=== PATIENT | male | born 1930 | race Caucasian/White ===

== ENCOUNTER 2018-02-02 11:40 | Inpatient (IN) | payer MEDICARE, OTHER ==
[~2018-02-02] VITALS: Ht 157.5 cm; Wt 78.5 kg
[2018-02-02 12:03] LABS: BASOPHILS % (AUTO) 0.4 % (0.0-2.0); EOSINOPHILS # (AUTO) 0.1 K/uL (0.0-0.7); HEMATOCRIT 38.2 % (36.7-47.1); HEMOGLOBIN 12.7 g/dL (12.5-16.3); LYMPHOCYTES # (AUTO) 1.9 K/uL (20.0-40.0); LYMPHOCYTES % (AUTO) 27.3 % (20.5-51.5); MEAN CORPUSCULAR HGB CONC 33 g/dL (32.5-36.3); MEAN CORPUSCULAR VOLUME 96.1 fL (73.0-96.2); MONOCYTES # (AUTO) 0.7 K/uL (2.0-10.0); NEUTROPHILS # (AUTO) 4.4 K/uL (1.8-8.9); NEUTROPHILS % (AUTO) 61.3 % (38.5-71.5); PLATELET COUNT (AUTO) 138 K/uL (152-348); RED BLOOD CELL COUNT(AUTO) 3.97 MIL/uL (4.06-5.63); WHITE BLOOD COUNT (AUTO) 7.1 K/uL (3.6-10.2)
--- NOTE | 2018-02-02 12:03 | NUR ---
Dr Bailey at the bedside for MSE.
[2018-02-02 12:13] LABS: CARBON DIOXIDE 22 mmol/L (21-32); CHLORIDE 107 mmol/L (98-107); CREATININE 1.2 mg/dL (0.6-1.3); GLUCOSE 138 mg/dL (74-106); POTASSIUM 4.3 mmol/L (3.5-5.1); UREA NITROGEN, BLOOD 24 mg/dL (7-18)
[2018-02-02] MEDS ORDERED: FOLI1TAB16 PO (12:18)
[2018-02-02] MEDS ORDERED: HYDR-3976 PO (12:18)
[2018-02-02] MEDS ORDERED: FAMO-132 PO (12:18)
[2018-02-02] MEDS ORDERED: GABA600T2 PO (12:18)
[2018-02-02] MEDS ORDERED: TAMS-3 PO (12:18)
[2018-02-02] MEDS ORDERED: FEXO-38 PO (12:18)
[2018-02-02] MEDS ORDERED: METH2.5T PO (12:18)
[2018-02-02] MEDS ORDERED: TRAZ-182 PO (12:18)
[2018-02-02] MEDS ORDERED: ACET325T53 PO (12:18)
[2018-02-02] MEDS ORDERED: PRED-429 PO (12:18)
[2018-02-02] MEDS ORDERED: METF500T7 PO (12:18)
[2018-02-02] MEDS ORDERED: MELO-107 PO (12:18)
[2018-02-02] MEDS ORDERED: OMEP20TA5 PO (12:18)
[2018-02-02] MEDS ORDERED: ONDA4TAB10 PO (12:18)
[2018-02-02] MEDS ORDERED: MONT10TA22 PO (12:18)
[2018-02-02] MEDS ORDERED: NYST15OI TP (12:18)
[2018-02-02] MEDS ORDERED: ZOLP5TAB8 PO (12:18)
[2018-02-02] MEDS ORDERED: POLY255P2 PO (12:18)
[2018-02-02] MEDS ORDERED: LOSA50TA21 PO (12:18)
[2018-02-02] MEDS ORDERED: GUAI100S9 PO (12:18)
[2018-02-02] MEDS ORDERED: ALBU18HF2 IH (12:18)
[2018-02-02 12:20] LABS: ALANINE AMINOTRANSFERASE 42 U/L (16-63); ALKALINE PHOSPHATASE 105 U/L (50-136); ASPARTATE AMINOTRANSFERASE 31 U/L (15-37); BILIRUBIN,DIRECT 0.3 mg/dL (0.0-0.2); BILIRUBIN,TOTAL 0.7 mg/dL (0.2-1.0); TOTAL PROTEIN, SERUM 6.7 g/dL (6.4-8.2)
[2018-02-02 12:22] LABS: ACETAMINOPHEN < 2.0 ug/mL (10-30)
[2018-02-02 12:23] LABS: ETHANOL < 3 MG/DL (0-0)
--- NOTE | 2018-02-02 12:23 | NUR ---
Pt able to use urinal, urine collected and sent to LAB.
--- NOTE | 2018-02-02 12:30 | NUR ---
Pt is medically cleared by Dr Bailey. [facility] brand development manager Gerardo Duarte called, ETA 1 hour.
--- NOTE | 2018-02-02 12:45 | NUR ---
Lunch provided, pt ate w/o assisstance.
[2018-02-02 12:48] LABS: *BILIRUBIN,URIN NEGATIVE (NEGATIVE); *BLOOD, URINE NEGATIVE (NEGATIVE); *CLARITY,URINE CLEAR (CLEAR); *COLOR,URINE YELLOW (YELLOW); *KETONES,URINE TRACE (NEGATIVE); *PROTEIN,URINE TRACE (NEGATIVE); *UROBILINOGEN,URINE 0.2 E.U./dl (NORMAL); LEUKOCYTE ESTERASE ,URINE NEGATIVE (NEGATIVE); NITRITE, URINE NEGATIVE (NEGATIVE); PH,URINE 5.5 (5.0-8.0); UGLUCOSE NEGATIVE (NEGATIVE)
[2018-02-02 12:52] LABS: BACTERIA,URINE FEW /HPF (NONE SEEN); RBC,URINE 0-3 /HPF (0-3); SQUAMOUS EPITHELIAL CELL,UR FEW /HPF (NONE SEEN); WBC,URINE 0-3 /HPF (0-3)
[2018-02-02 13:17] LABS: *AMPHETAMINE, URINE NEGATIVE (NEGATIVE); *BARBITURATE, URINE NEGATIVE (NEGATIVE); *CANNABINOID, URINE NEGATIVE (NEGATIVE); *COCCAINE, URINE NEGATIVE (NEGATIVE); *OPIATE, URINE POSITIVE (NEGATIVE); *PHENCYCLIDINE SCREEN,URINE NEGATIVE (NEGATIVE)
--- NOTE | 2018-02-02 14:25 | NUR ---
Gerardo Duarte from [facility] at the bedside for Psych Eval.
[2018-02-02] MEDS ORDERED: GUAIFENESIN SUGAR FREE 100 MG/5 ML UDC PO PRN (16:15)
[2018-02-02] MEDS ORDERED: FAMOTIDINE 20 MG TABLET PO PRN (16:15)
[2018-02-02] MEDS ORDERED: ALBUTEROL SULFATE 2.5 MG/3 ML NEBU NEB PRN (16:30)
[2018-02-02] MEDS ORDERED: HYDROCODONE/APAP 7.5-325MG TABLET PO SCH (17:00)
[2018-02-02] MEDS ORDERED: ACETAMINOPHEN 325 MG TABLET PO SCH (17:00)
[2018-02-02] MEDS: NYSTATIN OINTMENT 15 GM TUBE TP SCH (17:00)
[2018-02-02] MEDS ORDERED: ALBUTEROL SULFATE 8 GM HFA.AER.AD IH SCH (17:00)
[2018-02-02] MEDS ORDERED: ACETAMINOPHEN 325 MG TABLET PO PRN (17:00)
[2018-02-02] MEDS ORDERED: Z GUARD REMEDY PASTE 57 GM TUBE TOP PRN (19:30)
--- NOTE | 2018-02-02 19:30 | NUR ---
RECEIVED PATIENT IN HIS ROOM. HE IS NOTED A/O X2, (PERSON AND PLACE) ABLE TO MAKE HIS NEEDS KNOW, AND ABLE TO AMBULATE WITH ONE PERSON ASSISTANCE. HE WAS NOTED IRRITABLE, HE IS NOTED COMPLAINING OF THE AIR CONDITION BLOWING DIRECTLY INTO HIS FACE. PATIENT WAS PLACED IN A [facility]SEE CHAIR AND WAS OFFERED A DIFFERENT ROOM. POOR INSIGHT NOTED INTO THE REASON FOR HIS ADMISSION TO [facility]. PATIENT DENIES SI. DENIES HEARING VOICES. ABLE TO CONTRACT FOR SAFETY. ABLE TO COMPLY WITH MEDICATION REGIMENT, SAFETY EMPHASIS. WILL CONTINUE TO MONITOR CLOSELY.
[2018-02-02] MEDS: TRAZODONE 50 MG TABLET PO SCH (20:08)
[2018-02-02 20:47] VITALS: BP 135/66
[2018-02-02] MEDS ORDERED: TRAZODONE 50 MG TABLET PO SCH (21:00)
[2018-02-02] MEDS ORDERED: ZOLPIDEM 5 MG TABLET PO SCH (21:00)
[2018-02-02] MEDS: MONTELUKAST SODIUM 10 MG TABLET PO SCH (21:25)
[2018-02-02] MEDS: TAMSULOSIN HCL 0.4 MG CAP.SR.24H PO SCH (21:25)
[2018-02-02] MEDS: Z GUARD REMEDY PASTE 57 GM TUBE TOP SCH (21:26)
[2018-02-02] MEDS: TEMAZEPAM 7.5 MG CAPSULE PO PRN (22:03)
--- NOTE | 2018-02-02 22:05 | NUR ---
PATIENT NOTED AWAKE, UNABLE TO FALL ASLEEP. TEMAZEPAM 7.5 MG PO PRN WAS GIVEN FOR INSOMNIA. WILL CONTINUE TO MONITOR CLOSELY.
--- NOTE | 2018-02-03 00:10 | NUR ---
PATIENT NOTED SLEEPING COMFORTABLE IN HIS BED. WILL CONTINUE TO MONITOR CLOSELY.
[2018-02-03 07:34] LABS: THYROID STIMULATING HORMONE 1.926 mIU/mL (0.358-3.740)
[2018-02-03 07:50] LABS: MAGNESIUM 1.8 mg/dL (1.8-2.4); POTASSIUM 4.2 mmol/L (3.5-5.1)
[2018-02-03 08:00] VITALS: BP 141/60
--- NOTE | 2018-02-03 08:00 | NUR ---
Pt.eating breakfast ,was assisted,good appetite.good interaction.
[2018-02-03] MEDS: FEXOFENADINE HCL 180 MG TABLET PO SCH (08:18)
[2018-02-03] MEDS: FOLIC ACID 1 MG TABLET PO SCH (08:18)
[2018-02-03] MEDS: NYSTATIN OINTMENT 15 GM TUBE TP SCH ×3 (08:19→17:13)
[2018-02-03] MEDS: MIRALAX 17 GM POWD.PACK PO SCH (08:19)
[2018-02-03] MEDS: LOSARTAN POTASSIUM 50 MG TABLET PO SCH (08:19)
[2018-02-03] MEDS: Z GUARD REMEDY PASTE 57 GM TUBE TOP SCH ×2 (08:19→20:40)
[2018-02-03] MEDS: HYDROCODONE/APAP 5-325MG TABLET PO PRN (10:14)
[2018-02-03] MEDS ORDERED: METHOTREXATE SODIUM 2.5 MG TABLET PO SCH (12:30)
[2018-02-03] MEDS ORDERED: Medication Not On Formulary EA (Meloxicam 15 MG) PO PRN (12:30)
--- NOTE | 2018-02-03 12:30 | NUR ---
Pt.in activities room,became restless with episodes of agitation, pushing staff.
[2018-02-03] MEDS: SERTRALINE HCL 50 MG TABLET PO SCH (12:32)
[2018-02-03] MEDS ORDERED: MELOXICAM 7.5 MG TABLET PO PRN (13:00)
--- NOTE | 2018-02-03 14:03 | NUR ---
SPOKE WITH PT'S SON BRIGITTE KAPADIA, WHO SAID THAT HE CAN BRING PATIENT'S METHOTRAXATE FROM THE FACILITY BEFORE IT IS DUE NEXT WEDNESDAY.
--- NOTE | 2018-02-03 14:32 | NUR ---
pt.sleeping,no s/s of distress.
[2018-02-03 16:00] VITALS: BP 110/46
[2018-02-03] MEDS: DIVALPROEX 125 MG TABLET.DR PO SCH ×2 (17:49→20:39)
--- NOTE | 2018-02-03 19:17 | NUR ---
sbar report given ,no changes in pt.condition,no s/s of distress.
[2018-02-03] MEDS: ONDANSETRON HCL 4 MG TABLET PO PRN (20:29)
[2018-02-03 20:30] VITALS: BP_SYST 114; BP_SYST 126; BP_DIAS 61; BP_DIAS 67
--- NOTE | 2018-02-03 20:30 | NUR ---
RECEIVED PATIENT FROM [facility]. PATIENT IS ALERT TO SELF. PATIENT IS CONFUSED AND DISORIENTED BUT APPROPRIATE WHEN APPROACHED AND COOPERATIVE WITH STAFF AND CARE. PATIENT IS C/O NAUSEA. GIVEN ZOFRAN 4MG PO ORDERED PRN. VS WNL. PATIENT DENIES PAIN. NO S/S OF PAIN OR DISCOMFORT. NO RESP. DISTRESS NOTED. SITTER AT BEDSIDE. PROVIDED SAFE AND THERAPEUTIC ENVIRONMENT. BED ALARM ON. ALL NEEDS ATTENDED. WILL CONTINUE TO MONITOR AND ASSESS.
[2018-02-03] MEDS: TAMSULOSIN HCL 0.4 MG CAP.SR.24H PO SCH (20:39)
[2018-02-03] MEDS: GABAPENTIN 300 MG CAPSULE PO SCH (20:39)
[2018-02-03] MEDS: TRAZODONE 50 MG TABLET PO SCH (20:40)
[2018-02-03] MEDS: MONTELUKAST SODIUM 10 MG TABLET PO SCH (20:40)
[2018-02-03] MEDS ORDERED: Medication Not On Formulary EA (Gabapentin 600 MG) PO SCH (21:00)
--- NOTE | 2018-02-03 22:00 | NUR ---
ZOFRAN EFFECTIVE. NO C/O NAUSEA. SITTER AT BEDSIDE.
[2018-02-03] MEDS: TEMAZEPAM 7.5 MG CAPSULE PO PRN (23:02)
--- NOTE | 2018-02-03 23:05 | NUR ---
PATIENT IS AWAKE IN BED, RESTLESS. GIVEN RESTORIL 7.5MG PO PRN FOR SLEEP. SITTER AT BEDSIDE.
--- NOTE | 2018-02-04 06:12 | NUR ---
PATIENT ASLEEP IN BED. SLEPT 6 HOURS AND 45 MINUTES. SITTER AT BEDSIDE.
[2018-02-04 08:00] VITALS: BP 120/63
[2018-02-04] MEDS ORDERED: PREDNISONE 5 MG PO SCH (09:00)
[2018-02-04] MEDS: predniSONE 5 MG TABLET PO SCH (09:12)
[2018-02-04] MEDS: DIVALPROEX 125 MG TABLET.DR PO SCH ×2 (09:12→20:05)
[2018-02-04] MEDS: FEXOFENADINE HCL 180 MG TABLET PO SCH (09:12)
[2018-02-04] MEDS: MIRALAX 17 GM POWD.PACK PO SCH (09:12)
[2018-02-04] MEDS: FOLIC ACID 1 MG TABLET PO SCH (09:12)
[2018-02-04] MEDS: LOSARTAN POTASSIUM 50 MG TABLET PO SCH (09:12)
[2018-02-04] MEDS: NYSTATIN OINTMENT 15 GM TUBE TP SCH ×3 (09:13→17:12)
[2018-02-04] MEDS: Z GUARD REMEDY PASTE 57 GM TUBE TOP SCH ×2 (09:13→20:09)
[2018-02-04] MEDS: HYDROCODONE/APAP 5-325MG TABLET PO PRN (09:27)
[2018-02-04] MEDS: ONDANSETRON HCL 4 MG TABLET PO PRN (09:27)
[2018-02-04 11:46] VITALS: BP 102/50
[2018-02-04] MEDS: SERTRALINE HCL 50 MG TABLET PO SCH (12:51)
--- NOTE | 2018-02-04 14:40 | NUR ---
Initial DC Plan: Patient currently resides at [facility] [[address] [place] [address]; ]. SW will follow up with MD, patient, and patient's son Nikita [[phone]] to discuss most appropriate discharge plans. SW will form a safe and proper discharge.
[2018-02-04 16:15] VITALS: BP 106/56
[2018-02-04 20:00] VITALS: BP 128/60
[2018-02-04] MEDS: TAMSULOSIN HCL 0.4 MG CAP.SR.24H PO SCH (20:04)
[2018-02-04] MEDS: GABAPENTIN 300 MG CAPSULE PO SCH (20:04)
[2018-02-04] MEDS: MONTELUKAST SODIUM 10 MG TABLET PO SCH (20:05)
[2018-02-04] MEDS: TRAZODONE 50 MG TABLET PO SCH (20:05)
--- NOTE | 2018-02-05 07:05 | NUR ---
Nurse Notes: Received patient awake, calm, lying on bed on a semi- love's position with 1:1 sitter at the bedside for safety. call light within reach. no SOB or distress. Denies any pain. No display of pain or discomforts. Will continue to closely monitor.
[2018-02-05 07:25] VITALS: BP 109/49
[2018-02-05] MEDS ORDERED: DEXTROSE 50% 50 ML DISP.SYRIN IV PRN (08:00)
[2018-02-05] MEDS: BLOOD SUGAR DIAGNOSTIC 1 EACH STRIP VI SCH ×4 (08:32→20:34)
[2018-02-05] MEDS: NYSTATIN OINTMENT 15 GM TUBE TP SCH ×3 (08:40→16:09)
[2018-02-05] MEDS: INSULIN REGULAR, HUMAN 300 UNIT/3 ML VIAL SQ PRN ×2 (08:42→12:04)
[2018-02-05] MEDS: DIVALPROEX 125 MG TABLET.DR PO SCH ×2 (08:43→20:19)
[2018-02-05] MEDS: Z GUARD REMEDY PASTE 57 GM TUBE TOP SCH ×2 (08:43→20:23)
[2018-02-05] MEDS: FOLIC ACID 1 MG TABLET PO SCH (08:43)
[2018-02-05] MEDS: MIRALAX 17 GM POWD.PACK PO SCH (08:43)
[2018-02-05] MEDS: predniSONE 5 MG TABLET PO SCH (08:43)
[2018-02-05] MEDS: FEXOFENADINE HCL 180 MG TABLET PO SCH (08:43)
[2018-02-05] MEDS: LOSARTAN POTASSIUM 50 MG TABLET PO SCH (08:44)
[2018-02-05] MEDS: SERTRALINE HCL 50 MG TABLET PO SCH (12:04)
[2018-02-05 12:50] VITALS: BP 116/60
[2018-02-05 16:37] VITALS: BP 137/66
--- NOTE | 2018-02-05 17:22 | NUR ---
Nurse Notes: patient remained calm throughout the shift with no episodes of combativeness towards the staff. patient was cooperative and allowed the staff to provide care. performed blood sugar checks as scheduled, administered scheduled medications and insulin as ordered. Able to ambulate to the bathroom using FWW with steady gait. On 1:1 sitter for safety. Safety precautions observed. hourly rounding done. will endorse accordingly to incoming shift for continuity of care. Will continue to monitor.
[2018-02-05 19:00] VITALS: BP 123/57
--- NOTE | 2018-02-05 20:00 | NUR ---
Patient had a phone conversation with family member. Able to comprehend conversation. Patient assisted to restroom with FWW and assistance from [employer]INT [employer] FE[employer]ER. Frequent visual checks all times. Bed alarm engaged and sitter present at all times. No complaints of pain at this time. Will continue to monitor.
[2018-02-05] MEDS: TRAZODONE 50 MG TABLET PO SCH (20:19)
[2018-02-05] MEDS: TAMSULOSIN HCL 0.4 MG CAP.SR.24H PO SCH (20:20)
[2018-02-05] MEDS: GABAPENTIN 300 MG CAPSULE PO SCH (20:22)
[2018-02-05] MEDS: MONTELUKAST SODIUM 10 MG TABLET PO SCH (20:22)
[2018-02-05] MEDS: ATORVASTATIN 10 MG TABLET PO SCH (20:22)
--- NOTE | 2018-02-05 21:20 | NUR ---
Patient refused insulin. Risks and benefits explained x 3
--- NOTE | 2018-02-06 01:00 | NUR ---
Pt in room asleep. No apparent distress at this time.
--- NOTE | 2018-02-06 04:38 | NUR ---
Patient resting in bed. Sitter at bedside. No agitation noted at this time. Patient in good spirts
[2018-02-06 05:02] VITALS: BP 141/60
[2018-02-06] MEDS: BLOOD SUGAR DIAGNOSTIC 1 EACH STRIP VI SCH ×4 (06:33→20:19)
--- NOTE | 2018-02-06 07:05 | NUR ---
Received report from shift lab technician nurse, patient in bed awake, no distress noted at this time, bed in low position, side rails up x2. Sitter at bedside.
[2018-02-06 08:00] VITALS: BP 112/55
[2018-02-06] MEDS: DIVALPROEX 125 MG TABLET.DR PO SCH ×2 (08:36→20:19)
[2018-02-06] MEDS: predniSONE 5 MG TABLET PO SCH (08:36)
[2018-02-06] MEDS: FOLIC ACID 1 MG TABLET PO SCH (08:36)
[2018-02-06] MEDS: FEXOFENADINE HCL 180 MG TABLET PO SCH (08:37)
[2018-02-06] MEDS: LOSARTAN POTASSIUM 50 MG TABLET PO SCH (08:37)
[2018-02-06] MEDS: NYSTATIN OINTMENT 15 GM TUBE TP SCH ×3 (08:38→17:29)
[2018-02-06] MEDS: Z GUARD REMEDY PASTE 57 GM TUBE TOP SCH ×2 (08:38→20:26)
[2018-02-06] MEDS: MIRALAX 17 GM POWD.PACK PO SCH (08:38)
[2018-02-06] MEDS: INSULIN REGULAR, HUMAN 300 UNIT/3 ML VIAL SQ PRN ×3 (08:44→17:07)
[2018-02-06] MEDS ORDERED: BISACODYL 5 MG TABLET.DR PO PRN (11:45)
[2018-02-06] MEDS: SERTRALINE HCL 50 MG TABLET PO SCH (12:34)
[2018-02-06 15:44] VITALS: BP 122/56
[2018-02-06] MEDS: ONDANSETRON HCL 4 MG TABLET PO PRN (17:02)
--- NOTE | 2018-02-06 17:44 | NUR ---
Patient has been cooperative with care, ambulated to restroom with assistance, all needs attended to. Currently patient in bed, no distress noted, bed in low position, side rails up x2. Sitter at bedside.
[2018-02-06 19:51] VITALS: BP 133/61
[2018-02-06] MEDS: INSULIN GLARGINE,HUM 300 UNITS/3 ML CARTRIDGE SQ SCH (20:18)
[2018-02-06] MEDS: ATORVASTATIN 10 MG TABLET PO SCH (20:19)
[2018-02-06] MEDS: GABAPENTIN 300 MG CAPSULE PO SCH (20:19)
[2018-02-06] MEDS: TRAZODONE 50 MG TABLET PO SCH (20:22)
[2018-02-06] MEDS: MONTELUKAST SODIUM 10 MG TABLET PO SCH (20:22)
[2018-02-06] MEDS: TAMSULOSIN HCL 0.4 MG CAP.SR.24H PO SCH (20:22)
--- NOTE | 2018-02-06 21:00 | NUR ---
Nursing Note: Pt resting comfortably in bed. No apparent distress at this time. Respirations even and unlabored. No episodes of screaming and yelling noted. Pt remains on 5250 hold until 02/19/18. Pt noted with r groin rash, L fa abrasion and lower back rash. Z-gaurd applied where indicated. No complaints of pain at this time. Call light in reach. Bed in low positions. Side rails up. Noted with 1:1 sitter justified by psychosis diagnosis. Frequent visual checks. Will continue to monitor.
[2018-02-06] MEDS: TEMAZEPAM 7.5 MG CAPSULE PO PRN (22:20)
--- NOTE | 2018-02-07 01:00 | NUR ---
Nursing Notes: Pt requested medication for sleep and pain. Medications administered and appear to be effective. No adverse reactions noted. Pt appears to be sleeping. Bed in low position and wheels locked. Pt ambulatory with FWW and standby assistance. 1:1 sitter present at all times. No acute distress at this time. Lantus initiated this past evening. No s/s of hyper and hypoglycemia. Frequent visual checks. Call light in reach. Will continue to monitor.
[2018-02-07 06:06] LABS: BASOPHILS % (AUTO) 0.3 % (0.0-2.0); EOSINOPHILS # (AUTO) 0.1 K/uL (0.0-0.7); EOSINOPHILS % (AUTO) 1.2 % (0.0-7.0); HEMATOCRIT 37.4 % (36.7-47.1); HEMOGLOBIN 12.6 g/dL (12.5-16.3); LYMPHOCYTES # (AUTO) 2.1 K/uL (20.0-40.0); LYMPHOCYTES % (AUTO) 22.5 % (20.5-51.5); MEAN CORPUSCULAR HEMOGLOBIN 31.9 uug (23.8-33.4); MEAN CORPUSCULAR HGB CONC 34 g/dL (32.5-36.3); MEAN CORPUSCULAR VOLUME 95.1 fL (73.0-96.2); MONOCYTES # (AUTO) 1.2 K/uL (2.0-10.0); MONOCYTES % (AUTO) 12.4 % (0.0-11.0); NEUTROPHILS % (AUTO) 63.6 % (38.5-71.5); PLATELET COUNT (AUTO) 126 K/uL (152-348); RED BLOOD CELL COUNT(AUTO) 3.94 MIL/uL (4.06-5.63); WHITE BLOOD COUNT (AUTO) 9.4 K/uL (3.6-10.2)
[2018-02-07 06:16] LABS: CARBON DIOXIDE 27 mmol/L (21-32); CHLORIDE 101 mmol/L (98-107); GLUCOSE 134 mg/dL (74-106); POTASSIUM 4.4 mmol/L (3.5-5.1); UREA NITROGEN, BLOOD 17 mg/dL (7-18)
[2018-02-07] MEDS: BLOOD SUGAR DIAGNOSTIC 1 EACH STRIP VI SCH ×4 (06:34→21:18)
--- NOTE | 2018-02-07 07:20 | NUR ---
RECEIVED REPORT FROM SUPERVISOR SOAKERS NURSE, PATIENT IN BED ASLEEP, NO DISTRESS NOTED AT THIS TIME, BED IN LOW POSITION, SIDE RAILS UP X2. SITTER AT BEDSIDE.
[2018-02-07 07:31] VITALS: BP 96/54
[2018-02-07] MEDS: FOLIC ACID 1 MG TABLET PO SCH (08:49)
[2018-02-07] MEDS: DIVALPROEX 125 MG TABLET.DR PO SCH ×2 (08:49→21:03)
[2018-02-07] MEDS: predniSONE 5 MG TABLET PO SCH (08:49)
[2018-02-07] MEDS: MIRALAX 17 GM POWD.PACK PO SCH (08:49)
[2018-02-07] MEDS: NYSTATIN OINTMENT 15 GM TUBE TP SCH ×3 (08:50→17:49)
[2018-02-07] MEDS: Z GUARD REMEDY PASTE 57 GM TUBE TOP SCH ×2 (08:50→21:04)
[2018-02-07] MEDS: LOSARTAN POTASSIUM 50 MG TABLET PO SCH (08:50)
[2018-02-07] MEDS: FEXOFENADINE HCL 180 MG TABLET PO SCH (08:51)
[2018-02-07 09:06] VITALS: BP 102/44
[2018-02-07 11:14] VITALS: BP 108/63
[2018-02-07] MEDS: SERTRALINE HCL 50 MG TABLET PO SCH (12:49)
[2018-02-07] MEDS: INSULIN REGULAR, HUMAN 300 UNIT/3 ML VIAL SQ PRN ×2 (12:51→21:22)
[2018-02-07 16:00] VITALS: BP 126/60
[2018-02-07] MEDS: ONDANSETRON HCL 4 MG TABLET PO PRN (16:11)
--- NOTE | 2018-02-07 17:15 | NUR ---
Patient appears to be lethargic and a small droop observed on left lip, received second opinion from charge nurse that is not recognizing this as a droop. Patient is alert to name, birthday, date, and place. No weakness in extremities noted. Notified PAINTER ASSISTANT Rodrigo, after reviewing chart, response received that "no new orders" will be placed at this time.
[2018-02-07 18:10] LABS: *VITAMIN D 25-OH VIT D 22 ng/mL (.); *VITAMIN D 25-OH, D2 <1.0 ng/mL (.); *VITAMIN D 25-OH, D3 22 ng/mL (.)
--- NOTE | 2018-02-07 18:39 | NUR ---
Patient has been cooperative with care, no distress noted at this time, patient is sleeping. Bed in low position, side rails up x2, sitter at bedside.
[2018-02-07 19:52] VITALS: BP 135/90
[2018-02-07] MEDS: MONTELUKAST SODIUM 10 MG TABLET PO SCH (21:03)
[2018-02-07] MEDS: TAMSULOSIN HCL 0.4 MG CAP.SR.24H PO SCH (21:03)
[2018-02-07] MEDS: GABAPENTIN 300 MG CAPSULE PO SCH (21:03)
[2018-02-07] MEDS: ATORVASTATIN 10 MG TABLET PO SCH (21:03)
[2018-02-07] MEDS: INSULIN GLARGINE,HUM 300 UNITS/3 ML CARTRIDGE SQ SCH (21:22)
[2018-02-08] MEDS: BLOOD SUGAR DIAGNOSTIC 1 EACH STRIP VI SCH ×4 (06:49→21:00)
--- NOTE | 2018-02-08 07:20 | NUR ---
Received report from shift leader nurse, patient in bed awake, no distress noted at this time, bed in low position, side rails up x2, sitter at bedside.
[2018-02-08 08:08] VITALS: BP 123/58
[2018-02-08] MEDS: FEXOFENADINE HCL 180 MG TABLET PO SCH (08:19)
[2018-02-08] MEDS: predniSONE 5 MG TABLET PO SCH (08:19)
[2018-02-08] MEDS: FOLIC ACID 1 MG TABLET PO SCH (08:19)
[2018-02-08] MEDS: LOSARTAN POTASSIUM 50 MG TABLET PO SCH (08:19)
[2018-02-08] MEDS: DIVALPROEX 125 MG TABLET.DR PO SCH ×2 (08:19→20:47)
[2018-02-08] MEDS: MIRALAX 17 GM POWD.PACK PO SCH (08:20)
[2018-02-08] MEDS: NYSTATIN OINTMENT 15 GM TUBE TP SCH ×3 (08:20→17:26)
[2018-02-08] MEDS: Z GUARD REMEDY PASTE 57 GM TUBE TOP SCH ×2 (08:21→20:47)
[2018-02-08] MEDS: INSULIN REGULAR, HUMAN 300 UNIT/3 ML VIAL SQ PRN ×2 (08:28→14:06)
[2018-02-08] MEDS: SERTRALINE HCL 50 MG TABLET PO SCH (12:51)
[2018-02-08] MEDS: ONDANSETRON HCL 4 MG TABLET PO PRN (15:26)
[2018-02-08 16:00] VITALS: BP 105/53
--- NOTE | 2018-02-08 18:15 | NUR ---
Patient has been cooperative with care, hasn't eaten much throughout the day, and felt nauseated. Patient ambulates to restroom with assist, and takes medications as ordered. No distress noted thruoghout shift, bed in low position, side rails up x2, sitter at bedside.
[2018-02-08 20:06] VITALS: BP 103/52
[2018-02-08] MEDS: GABAPENTIN 300 MG CAPSULE PO SCH ×2 (20:46→21:00)
[2018-02-08] MEDS: ATORVASTATIN 10 MG TABLET PO SCH ×2 (20:47→21:00)
[2018-02-08] MEDS: TAMSULOSIN HCL 0.4 MG CAP.SR.24H PO SCH ×2 (20:47→21:00)
[2018-02-08] MEDS: MONTELUKAST SODIUM 10 MG TABLET PO SCH ×2 (20:47→21:00)
--- NOTE | 2018-02-08 20:52 | NUR ---
Patient was pleasant at the beginning of the shift during rounds. However, at this time patient is agitated. He refused to take his medications. He stated "I'm not taking any medications until I talk to my doctor!" I asked why he needed to speak to his doctor. Patient responded "because it's 9pm!" Patient took the medications and threw them against the wall. Patient's son just left home about 30 minuted prior. Per 1:1 sitter patient was not agitated until I came to give him his medications.
[2018-02-08] MEDS: INSULIN GLARGINE,HUM 300 UNITS/3 ML CARTRIDGE SQ SCH (21:00)
[2018-02-09] MEDS: ONDANSETRON HCL 4 MG TABLET PO PRN ×3 (00:08→19:03)
[2018-02-09] MEDS: TEMAZEPAM 7.5 MG CAPSULE PO PRN (01:25)
--- NOTE | 2018-02-09 05:54 | NUR ---
PT CONTINUED TO COMPLAIN OF NAUSEA. REFUSING TO DRINK MORE WATER OR TAKE IN SNACKS. ONLY TAKING ENOUGH WATER TO SWALLOW HIS ZOFRAN PILL. PRN RESTORIL ALSO ADMINISTERED LAST NIGHT BECAUSE PATIENT CONTINUES TO TOSS AND TURN IN BED UNABLE TO SLEEP. PT SLEPT 6 HOURS. GAVE ME NO PROBLEMS TAKING HIS PRN MEDICATIONS LAST NIGHT, BUT STILL SEEMS A LITTLE AGITATED AND UNCOMFORTABLE BECAUSE HE STILL COMPLAINS OF NAUSEA.
[2018-02-09] MEDS: BLOOD SUGAR DIAGNOSTIC 1 EACH STRIP VI SCH ×4 (06:32→20:49)
--- NOTE | 2018-02-09 07:41 | NUR ---
patient resting comfortably in bed at this time. insulin coverage will be provided. 1:1 sitter at bedside. patient refused medications during retail shift leader. patient was also nauseous. will monitor appetite. safety measures implemented. will monitor throughout shift.
[2018-02-09 08:23] VITALS: BP 119/52
[2018-02-09] MEDS: DIVALPROEX 125 MG TABLET.DR PO SCH ×3 (08:26→20:41)
[2018-02-09] MEDS: LOSARTAN POTASSIUM 50 MG TABLET PO SCH (08:26)
[2018-02-09] MEDS: predniSONE 5 MG TABLET PO SCH (08:26)
[2018-02-09] MEDS: FOLIC ACID 1 MG TABLET PO SCH (08:26)
[2018-02-09] MEDS: MIRALAX 17 GM POWD.PACK PO SCH (08:27)
[2018-02-09] MEDS: FEXOFENADINE HCL 180 MG TABLET PO SCH (08:27)
[2018-02-09] MEDS: INSULIN REGULAR, HUMAN 300 UNIT/3 ML VIAL SQ PRN ×3 (08:31→20:51)
[2018-02-09] MEDS ORDERED: [UNRECOGNIZED DRUG - OTHER] PO SCH (09:00)
[2018-02-09] MEDS: Z GUARD REMEDY PASTE 57 GM TUBE TOP SCH ×2 (09:18→20:42)
[2018-02-09] MEDS: NYSTATIN OINTMENT 15 GM TUBE TP SCH ×3 (09:18→16:31)
[2018-02-09] MEDS: ASPIRIN EC 81 MG TABLET.DR PO SCH (12:57)
[2018-02-09 15:13] VITALS: BP 93/66
[2018-02-09 15:32] VITALS: BP 119/73
--- NOTE | 2018-02-09 16:28 | NUR ---
Patient continues refusing to eat. appetite has been very poor throughout shift. dr. love adjusted psych medications. Patient appears restless. Has only gotten a total of approximately 2 hours of sleep during this shift.
--- NOTE | 2018-02-09 16:54 | NUR ---
Accu-check before dinner 130. no insulin coverage required per sliding scale.
--- NOTE | 2018-02-09 16:55 | NUR ---
patient has been trying very hard to sleep but appears to be having a difficult time throughout entire shift.
[2018-02-09 19:14] VITALS: BP 125/69
[2018-02-09] MEDS: GABAPENTIN 300 MG CAPSULE PO SCH (20:38)
[2018-02-09] MEDS: TAMSULOSIN HCL 0.4 MG CAP.SR.24H PO SCH (20:39)
[2018-02-09] MEDS: ATORVASTATIN 10 MG TABLET PO SCH ×2 (20:39→20:40)
[2018-02-09] MEDS: MONTELUKAST SODIUM 10 MG TABLET PO SCH (20:39)
[2018-02-09] MEDS: INSULIN GLARGINE,HUM 300 UNITS/3 ML CARTRIDGE SQ SCH (20:50)
--- NOTE | 2018-02-10 06:00 | NUR ---
PATIENT ASLEEP IN BED. SLEPT A TOTAL OF 7 HOURS. SITTER AT BEDSIDE. BED ALARM ON. ALL NEEDS ATTENDED.
[2018-02-10] MEDS: BLOOD SUGAR DIAGNOSTIC 1 EACH STRIP VI SCH ×4 (06:33→21:02)
[2018-02-10 07:41] VITALS: BP 99/53
--- NOTE | 2018-02-10 07:43 | NUR ---
Sleeping, appears comfortable. 1:1 sitter at bedside
[2018-02-10] MEDS: DIVALPROEX 125 MG TABLET.DR PO SCH ×3 (08:30→20:52)
[2018-02-10] MEDS: LOSARTAN POTASSIUM 50 MG TABLET PO SCH (08:30)
[2018-02-10] MEDS: FEXOFENADINE HCL 180 MG TABLET PO SCH (08:30)
[2018-02-10] MEDS: FOLIC ACID 1 MG TABLET PO SCH (08:31)
[2018-02-10] MEDS: MIRALAX 17 GM POWD.PACK PO SCH (08:31)
[2018-02-10] MEDS: Z GUARD REMEDY PASTE 57 GM TUBE TOP SCH ×2 (08:31→20:56)
[2018-02-10] MEDS: predniSONE 5 MG TABLET PO SCH (08:31)
[2018-02-10] MEDS: ASPIRIN EC 81 MG TABLET.DR PO SCH (08:31)
[2018-02-10] MEDS: NYSTATIN OINTMENT 15 GM TUBE TP SCH ×3 (08:32→17:32)
[2018-02-10] MEDS: INSULIN REGULAR, HUMAN 300 UNIT/3 ML VIAL SQ PRN ×2 (08:34→12:38)
[2018-02-10 11:05] VITALS: BP 124/63
--- NOTE | 2018-02-10 13:00 | NUR ---
Ate lunch after encouragement.
[2018-02-10 16:13] VITALS: BP 127/68
--- NOTE | 2018-02-10 18:12 | NUR ---
Poor appetite, only drank tea
--- NOTE | 2018-02-10 19:30 | NUR ---
Received patient from day shift nurse. Patient stable at start of shift no acute distress noted. Pertinent assessment completed. 1:1 sitter at the bedside for safety. Patient denies S.I. and has no active plan. Able to make his needs known. Room checked for safety at start of shift. Call light in reach. Will continue to monitor through shift.
[2018-02-10 20:00] VITALS: BP 130/70
[2018-02-10] MEDS: MONTELUKAST SODIUM 10 MG TABLET PO SCH (20:52)
[2018-02-10] MEDS: ATORVASTATIN 10 MG TABLET PO SCH ×2 (20:52)
[2018-02-10] MEDS: TAMSULOSIN HCL 0.4 MG CAP.SR.24H PO SCH (20:52)
[2018-02-10] MEDS: GABAPENTIN 300 MG CAPSULE PO SCH (20:56)
[2018-02-10] MEDS: INSULIN GLARGINE,HUM 300 UNITS/3 ML CARTRIDGE SQ SCH (21:05)
[2018-02-11 02:44] LABS: *BLOOD, URINE NEGATIVE (NEGATIVE); *CLARITY,URINE CLEAR (CLEAR); *COLOR,URINE YELLOW (YELLOW); *KETONES,URINE 2+ (NEGATIVE); *PROTEIN,URINE TRACE (NEGATIVE); LEUKOCYTE ESTERASE ,URINE NEGATIVE (NEGATIVE); NITRITE, URINE NEGATIVE (NEGATIVE); UGLUCOSE NEGATIVE (NEGATIVE)
[2018-02-11 02:49] LABS: *BILIRUBIN,URIN 1+ (NEGATIVE)
[2018-02-11 02:52] LABS: BACTERIA,URINE NONE SEEN /HPF (NONE SEEN); MUCUS,URINE FEW /LPF (0-FEW); RBC,URINE 0-3 /HPF (0-3); SQUAMOUS EPITHELIAL CELL,UR FEW /HPF (NONE SEEN); WBC,URINE 0-3 /HPF (0-3)
[2018-02-11 06:25] LABS: BASOPHILS % (AUTO) 0.3 % (0.0-2.0); EOSINOPHILS # (AUTO) 0.1 K/uL (0.0-0.7); EOSINOPHILS % (AUTO) 0.6 % (0.0-7.0); HEMATOCRIT 40.3 % (36.7-47.1); HEMOGLOBIN 13.7 g/dL (12.5-16.3); LYMPHOCYTES # (AUTO) 2.9 K/uL (20.0-40.0); LYMPHOCYTES % (AUTO) 25.8 % (20.5-51.5); MEAN CORPUSCULAR HEMOGLOBIN 31.9 uug (23.8-33.4); MEAN CORPUSCULAR HGB CONC 34 g/dL (32.5-36.3); MONOCYTES # (AUTO) 0.8 K/uL (2.0-10.0); MONOCYTES % (AUTO) 7.6 % (0.0-11.0); NEUTROPHILS # (AUTO) 7.3 K/uL (1.8-8.9); NEUTROPHILS % (AUTO) 65.7 % (38.5-71.5); PLATELET COUNT (AUTO) 191 K/uL (152-348); RED BLOOD CELL COUNT(AUTO) 4.29 MIL/uL (4.06-5.63); WHITE BLOOD COUNT (AUTO) 11.2 K/uL (3.6-10.2)
--- NOTE | 2018-02-11 06:26 | NUR ---
Patient slept well during the shift total of 8.5 hours. No acute distress noted. 1:1 sitter at the bedside for safety. Patient was complaint with care. No S.I. noted. All medications administered as per MD order. All needs attended to promptly. Patient kept clean & dry. Blood sugar this AM at 144. No s/s of hyper/hypoglycemia. Will endorse to day shift nurse to cover patient with breakfast tray. Safety measures implemented. Will endorse accordingly.
[2018-02-11] MEDS: BLOOD SUGAR DIAGNOSTIC 1 EACH STRIP VI SCH ×4 (06:30→20:22)
[2018-02-11 06:38] LABS: ALANINE AMINOTRANSFERASE 39 U/L (16-63); ALKALINE PHOSPHATASE 102 U/L (50-136); ASPARTATE AMINOTRANSFERASE 27 U/L (15-37); BILIRUBIN,TOTAL 1.2 mg/dL (0.2-1.0); CARBON DIOXIDE 26 mmol/L (21-32); CHLORIDE 100 mmol/L (98-107); GLUCOSE 133 mg/dL (74-106); POTASSIUM 4.2 mmol/L (3.5-5.1); TOTAL PROTEIN, SERUM 6.2 g/dL (6.4-8.2); UREA NITROGEN, BLOOD 23 mg/dL (7-18); VALPROIC ACID 31 ug/mL (50-100)
[2018-02-11 07:32] VITALS: BP 102/70
--- NOTE | 2018-02-11 07:52 | NUR ---
Sleeping, comfortable. with 1:1 sitter
[2018-02-11] MEDS: DIVALPROEX 125 MG TABLET.DR PO SCH (08:47)
[2018-02-11] MEDS: MIRALAX 17 GM POWD.PACK PO SCH (08:48)
[2018-02-11] MEDS: FEXOFENADINE HCL 180 MG TABLET PO SCH (08:48)
[2018-02-11] MEDS: ASPIRIN EC 81 MG TABLET.DR PO SCH (08:48)
[2018-02-11] MEDS: predniSONE 5 MG TABLET PO SCH (08:48)
[2018-02-11] MEDS: FOLIC ACID 1 MG TABLET PO SCH (08:48)
[2018-02-11] MEDS: LOSARTAN POTASSIUM 50 MG TABLET PO SCH (08:49)
[2018-02-11] MEDS: Z GUARD REMEDY PASTE 57 GM TUBE TOP SCH ×2 (08:50→20:17)
[2018-02-11] MEDS: NYSTATIN OINTMENT 15 GM TUBE TP SCH ×3 (08:50→17:33)
[2018-02-11] MEDS: INSULIN REGULAR, HUMAN 300 UNIT/3 ML VIAL SQ PRN ×4 (08:54→20:23)
--- NOTE | 2018-02-11 09:30 | NUR ---
Refused to take medications, but able to take Depakote after coming back.
--- NOTE | 2018-02-11 10:30 | NUR ---
Attempted to give the other medications but still refused. Refused PT but agreed to go get up to the bathroom
[2018-02-11 12:00] VITALS: BP 122/80
--- NOTE | 2018-02-11 12:49 | NUR ---
GPS/RN- DR GODINEZ NOTIFIED OF PATIENT REFUSAL THIS AM, REQUIRED ENCOURAGEMENT FOR MEDS, ADVISED OF LABS LOW VALPROIC LEVEL, ORDERS RECEIVED AND REPEATED BACK.
[2018-02-11] MEDS ORDERED: DIVALPROEX 125 MG TABLET.DR PO SCH (13:00)
--- NOTE | 2018-02-11 13:30 | NUR ---
only took a couple of bites for lunch. Took medications with son at bedside. Complaining of nausea. Zofran po given.
[2018-02-11] MEDS: DIVALPROEX 250 MG TABLET.DR PO SCH ×2 (13:37→20:16)
[2018-02-11] MEDS: ONDANSETRON HCL 4 MG TABLET PO PRN (13:51)
[2018-02-11 16:00] VITALS: BP 136/64
[2018-02-11 19:42] VITALS: BP 125/90
[2018-02-11] MEDS: TAMSULOSIN HCL 0.4 MG CAP.SR.24H PO SCH (20:16)
[2018-02-11] MEDS: MONTELUKAST SODIUM 10 MG TABLET PO SCH (20:16)
[2018-02-11] MEDS: ATORVASTATIN 10 MG TABLET PO SCH ×2 (20:16→20:26)
[2018-02-11] MEDS: GABAPENTIN 300 MG CAPSULE PO SCH (20:16)
[2018-02-11] MEDS: OLANZAPINE 2.5 MG TABLET PO SCH (20:17)
[2018-02-11] MEDS: INSULIN GLARGINE,HUM 300 UNITS/3 ML CARTRIDGE SQ SCH (20:23)
[2018-02-12 04:00] VITALS: BP 121/67
--- NOTE | 2018-02-12 05:31 | NUR ---
Patient slept 8 hours total. No acute distress noted. Patient was cooperative with staff. 1:1 sitter at bedside for safety. Patient was med compliant. Took pills whole. Denies any pain or SOB. Patient had good urine output. Vital signs stable. Safety and comfort measures maintained t/o shift. All meds given as ordered. All needs met.
[2018-02-12] MEDS: BLOOD SUGAR DIAGNOSTIC 1 EACH STRIP VI SCH ×4 (06:30→20:05)
[2018-02-12 08:21] VITALS: BP 112/64
[2018-02-12] MEDS: DIVALPROEX 250 MG TABLET.DR PO SCH ×4 (08:46→20:06)
[2018-02-12] MEDS: FEXOFENADINE HCL 180 MG TABLET PO SCH (08:46)
[2018-02-12] MEDS: FOLIC ACID 1 MG TABLET PO SCH (08:47)
[2018-02-12] MEDS: MIRALAX 17 GM POWD.PACK PO SCH (08:47)
[2018-02-12] MEDS: ASPIRIN EC 81 MG TABLET.DR PO SCH (08:47)
[2018-02-12] MEDS: predniSONE 5 MG TABLET PO SCH (08:47)
[2018-02-12] MEDS: LOSARTAN POTASSIUM 50 MG TABLET PO SCH (08:48)
[2018-02-12] MEDS: Z GUARD REMEDY PASTE 57 GM TUBE TOP SCH ×2 (08:49→20:06)
[2018-02-12] MEDS: NYSTATIN OINTMENT 15 GM TUBE TP SCH ×3 (08:49→17:23)
--- NOTE | 2018-02-12 11:37 | NUR ---
son at bedside, supportive of patient care,status.
[2018-02-12] MEDS: INSULIN REGULAR, HUMAN 300 UNIT/3 ML VIAL SQ PRN ×2 (11:54→18:01)
[2018-02-12 12:25] VITALS: BP 95/61
--- NOTE | 2018-02-12 15:00 | NUR ---
resting well . no distress noted.
[2018-02-12 15:38] VITALS: BP 94/54
[2018-02-12] MEDS: ONDANSETRON HCL 4 MG TABLET PO PRN ×2 (17:23→18:26)
--- NOTE | 2018-02-12 17:23 | NUR ---
complaint of nausea but unable to give zofran, will try again
--- NOTE | 2018-02-12 18:28 | NUR ---
still refused zofran ,not given.
[2018-02-12 19:34] VITALS: BP 107/50
[2018-02-12] MEDS: GABAPENTIN 300 MG CAPSULE PO SCH ×2 (20:06→20:57)
[2018-02-12] MEDS: MONTELUKAST SODIUM 10 MG TABLET PO SCH ×2 (20:06→20:58)
[2018-02-12] MEDS: TAMSULOSIN HCL 0.4 MG CAP.SR.24H PO SCH ×2 (20:06→20:56)
[2018-02-12] MEDS: ATORVASTATIN 10 MG TABLET PO SCH ×3 (20:06→20:57)
[2018-02-12] MEDS: INSULIN GLARGINE,HUM 300 UNITS/3 ML CARTRIDGE SQ SCH (20:09)
[2018-02-12] MEDS: OLANZAPINE 2.5 MG TABLET PO SCH (20:14)
--- NOTE | 2018-02-12 21:00 | NUR ---
Patient refused 2100 medications. Will continue to monitor.
[2018-02-13] MEDS: FAMOTIDINE 20 MG TABLET PO PRN ×2 (01:09→14:52)
--- NOTE | 2018-02-13 05:41 | NUR ---
Patient slept poorly, only 5 hours total. No acute distress noted. Patient was cooperative with staff. However, he is not med compliant. He refused last nights medication. C/O heart burn, med given, stated relief. 1:1 sitter at bedside for safety. Took pills whole. Denies any pain or SOB. Ambulates with a FWW. Patient had good urine output. Noted bilateral upper and lower extremities scabs. Left open to air. Vital signs stable. Safety and comfort measures maintained t/o shift. All meds given as ordered. All needs met.
[2018-02-13] MEDS: BLOOD SUGAR DIAGNOSTIC 1 EACH STRIP VI SCH ×4 (06:43→21:12)
--- NOTE | 2018-02-13 07:50 | NUR ---
received report from shiftman. patient stable upon initial assessment, pleasant with no s.s acute distress. VSS. will continue to monitor.
[2018-02-13 08:00] VITALS: BP 118/62
[2018-02-13] MEDS: LOSARTAN POTASSIUM 50 MG TABLET PO SCH (08:23)
[2018-02-13] MEDS: FEXOFENADINE HCL 180 MG TABLET PO SCH (08:23)
[2018-02-13] MEDS: predniSONE 5 MG TABLET PO SCH (08:24)
[2018-02-13] MEDS: Z GUARD REMEDY PASTE 57 GM TUBE TOP SCH ×2 (08:24→21:11)
[2018-02-13] MEDS: NYSTATIN OINTMENT 15 GM TUBE TP SCH ×3 (08:24→17:17)
[2018-02-13] MEDS: ASPIRIN EC 81 MG TABLET.DR PO SCH (08:24)
[2018-02-13] MEDS: FOLIC ACID 1 MG TABLET PO SCH (08:24)
[2018-02-13] MEDS: DIVALPROEX 250 MG TABLET.DR PO SCH ×3 (08:24→20:20)
[2018-02-13] MEDS: MIRALAX 17 GM POWD.PACK PO SCH (08:24)
--- NOTE | 2018-02-13 09:29 | NUR ---
patient refused most of medications this morning. patient stated medications will make him "sicker" and they are "poison". education provided regarding purpose and importance of medication compliance. pudding offered to take with medication to avoid nausea since patient complained also that medications make him have nausea. patient still refused. geropsych charge nurse aware that patient has been refusing medications. patients mood and behavior otherwise appropriate. sitter at bedside for safety. will continue to monitor.
--- NOTE | 2018-02-13 10:45 | NUR ---
patient agreed to take remaining morning medications, all medications given, will continue to monitor.
[2018-02-13] MEDS: INSULIN REGULAR, HUMAN 300 UNIT/3 ML VIAL SQ PRN ×2 (12:32→16:51)
[2018-02-13 15:53] VITALS: BP 121/65
[2018-02-13] MEDS: ONDANSETRON HCL 4 MG TABLET PO PRN (17:26)
--- NOTE | 2018-02-13 18:31 | NUR ---
patient stable this shift. patient noted to have several occasions of restlessness and confusion. son at bedside for most of afternoon. patient given pepcid and zofran PRN for nausea and stomach upset. both effective. will endorse to nightclub manager.
[2018-02-13 19:00] VITALS: BP 111/58
--- NOTE | 2018-02-13 19:20 | NUR ---
Received pt sitting up in bed. AAOx1. Mainly confused. In no acute distress. VS WNL. O2 sat at 97%. 1:1 sitter on bedside. bed on lock and low position. Safety measure initiated. Monitor for needs.
[2018-02-13] MEDS: MONTELUKAST SODIUM 10 MG TABLET PO SCH (20:20)
[2018-02-13] MEDS: GABAPENTIN 300 MG CAPSULE PO SCH (20:20)
[2018-02-13] MEDS: OLANZAPINE 2.5 MG TABLET PO SCH (20:20)
[2018-02-13] MEDS: ATORVASTATIN 10 MG TABLET PO SCH (20:39)
[2018-02-13] MEDS: TAMSULOSIN HCL 0.4 MG CAP.SR.24H PO SCH (20:39)
[2018-02-13] MEDS: INSULIN GLARGINE,HUM 300 UNITS/3 ML CARTRIDGE SQ SCH (20:40)
--- NOTE | 2018-02-14 06:16 | NUR ---
AAOx1. Mainly confused. Slept well last night. In no acute distress. VS WNL. 1:1 sitter on bedside. Bed on lock and low position. Safety measure maintained. Monitor for needs.
[2018-02-14 06:32] VITALS: BP 121/76
[2018-02-14] MEDS: BLOOD SUGAR DIAGNOSTIC 1 EACH STRIP VI SCH ×2 (06:32→11:00)
[2018-02-14 07:29] VITALS: BP 107/67
[2018-02-14] MEDS: ASPIRIN EC 81 MG TABLET.DR PO SCH (08:09)
[2018-02-14] MEDS: MIRALAX 17 GM POWD.PACK PO SCH (08:09)
[2018-02-14 08:10] VITALS: BP 107/67
[2018-02-14] MEDS: DIVALPROEX 250 MG TABLET.DR PO SCH ×2 (08:10→12:53)
[2018-02-14] MEDS: Z GUARD REMEDY PASTE 57 GM TUBE TOP SCH (08:10)
[2018-02-14] MEDS: predniSONE 5 MG TABLET PO SCH (08:10)
[2018-02-14] MEDS: FOLIC ACID 1 MG TABLET PO SCH (08:10)
[2018-02-14] MEDS: NYSTATIN OINTMENT 15 GM TUBE TP SCH ×2 (08:10→12:54)
[2018-02-14] MEDS: LOSARTAN POTASSIUM 50 MG TABLET PO SCH (08:10)
[2018-02-14] MEDS: FEXOFENADINE HCL 180 MG TABLET PO SCH (08:15)
--- NOTE | 2018-02-14 11:05 | NUR ---
DC Note: Patient will be discharged to [facility] [[address] [place] [address]; ] via ambulance. BONG spoke with Christina from [facility] who confirmed they can accept patient today. BONG spoke with patient's son Nikita [[phone]] who is aware and agreeable to discharge plans. Patient is aware and agreeable to discharge plans. Patient will follow up with Dr. Brandt (psychiatrist) and Dr. Addison Manley ([employer]Th Grade Mathematics Teacher) at the facility.
--- NOTE | 2018-02-14 11:58 | NUR ---
rn report given to michelle Pearson over [facility]
--- NOTE | 2018-02-14 13:37 | NUR ---
d/c orders received noted and carried out rn report given over [facility] ,pt left the facility via ambulances in stable condition.
== END 2018-02-14 13:45 | DRG 885 ==
LOC: ER 11:43 → GPS 15:00 → GPSOV 02-03 19:48
PROVIDERS: ADMIT Psychiatry & Neurology Psychosomatic Medicine; ATTEND Nurse Practitioner Acute Care
DX: F31.9 Bipolar disorder, unspecified (principal); E11.65 Type 2 diabetes mellitus with hyperglycemia; I10 Essential (primary) hypertension; I25.10 Atherosclerotic heart disease of native coronary artery without angina pectoris; J45.909 Unspecified asthma, uncomplicated; E86.0 Dehydration; N40.0 Benign prostatic hyperplasia without lower urinary tract symptoms; F41.9 Anxiety disorder, unspecified; F20.9 Schizophrenia, unspecified; F03.90 Unspecified dementia, unspecified severity, without behavioral disturbance, psychotic disturbance, mood disturbance, and anxiety; Z79.899 Other long term (current) drug therapy; K21.9 Gastro-esophageal reflux disease without esophagitis; M19.90 Unspecified osteoarthritis, unspecified site; E78.5 Hyperlipidemia, unspecified
CPT/HCPCS: 36415; 70450; 80164; 80307; 83735; 84132; 84443; 85025; 87086; 93307; 93880; 97116; 97530; A4663; G0480; G0480-TC; J1815; J3490; J3535; J7512; Q0162